=== PATIENT | female | born 1970 | race Caucasian/White ===

== ENCOUNTER 2018-03-10 12:39 | Outpatient (CLI) | END 2018-03-10 12:40 | disposition home or self-care (01) | LOC: FCC-LAB 12:39 | PROVIDERS: ATTEND Nurse Practitioner Family | DX: T14.8XXA Other injury of unspecified body region, initial encounter (principal); W57.XXXA Bitten or stung by nonvenomous insect and other nonvenomous arthropods, initial encounter | CPT/HCPCS: 36415; 80053; 85025; 86617; 86757; 87798 ==